=== PATIENT | female | born 1990 | race Asian ===

== ENCOUNTER 2018-02-02 03:52 | Inpatient (IN) | payer OTHER ==
[~2018-02-02] VITALS: Ht 160 cm; Wt 80.5 kg
[2018-02-02 04:11] LABS: ABSOLUTE BASOPHIL COUNT 0 /CUMM (0.0-0.2); ABSOLUTE EOSINOPHIL COUNT 0.1 /CUMM (0.0-0.7); ABSOLUTE GRANULOCYTE CT 11.6 /CUMM (1.4-6.5); ABSOLUTE LYMPH COUNT 1.1 /CUMM (1.2-3.4); ABSOLUTE MONOCYTE COUNT 0 /CUMM (0.10-0.60); BASOPHIL % 0 % (0.0-2.0); GRANULOCYTE % 90.5 % (42.2-75.2); HEMATOCRIT 29.5 % (37-47); MEAN CORPUSCULAR HGB 28.9 PG (27.0-31.0); MEAN CORPUSCULAR HGB CONC 33.4 G/DL (33.0-37.0); MEAN CORPUSCULAR VOLUME 86.5 FL (81.0-99.0); MEAN PLATELET VOLUME 7.7 FL (7.4-10.4); PLATELET COUNT 260 /CUMM (130-400); RBC DISTRIBUTION WIDTH 15.2 % (11.5-14.5); RED BLOOD CELL CT 3.41 /CUMM (4.20-5.40); WHITE BLOOD CELL COUNT 12.9 /CUMM (4.8-10.8)
--- NOTE | 2018-02-02 04:16 | ED GENERAL ADULT ---
See Addendum History of Present Illness General Chief Complaint: Dyspnea (COPD, CHF, Other) Stated Complaint: BIBA DIF BREATHING Source: patient, family, old records, EMS Exam Limitations: no limitations Vital Signs & Intake/Output Vital Signs & Intake/Output Vital Signs Date Time Temp Pulse Resp B/P B/P Pulse O2 O2 Flow FiO2 Mean Ox Delivery Rate 02/02 0734 91/53 02/02 0722 124 18 83/49 98 Room Air 02/02 0527 99.6 02/02 0527 99.6 120 20 96/56 99 Room Air 02/02 0420 103.5 02/02 0410 99 Room Air 02/02 0354 103.5 155 20 128/60 98 Allergies Coded Allergies: No Known Drug Allergies (NKDA 02/02/18) Triage Note: PT BIBA FROM HOME C/O SUDDEN ONSET SOB, AND CHILLS FOR A COUPLE OF HOURS. PMH OF VAGINAL DELIVERY AT [place] 11 DAYS AGO. HAD SPONTANEOUS EPISIOTOMY, SUTURES IN PLACE. IS BREAST FEEDING. HAS PRE HOSP 20G TO RT HAND AND LAC. TEMP 103.5 ON ARRIVAL TO ED. PT REPORTS BREATHING "IS BETTER" PT WAS HYPOTENSIVE FOR EMS SBP 80'S. RECEIVED 500 CC BOLUS NS. BP ON ARRIVAL TO ED 128/60. TEMP 103.5. O2 SAT 100% ON RA. PT VERY ANXIOUS. HUSBAMND AT BEDSIDE. NS CONTINUES TO INFUSE. DR CONTRERAS AT BEDSIDE TO EVAL PT ON PT ARRIVAL TO ROOM Triage Nurses Notes Reviewed? yes Onset: Evening Duration: hour(s):, better, constant, continues in ED, getting worse Timing: recent history Injury Environment: home Severity: severe No Modifying Factors: none Associated Symptoms: diaphoresis : No Patient currently breastfeeds: Yes HPI: 11 days prior to admission patient had normal spontaneous vaginal delivery. Several hours prior to admission she began to feel cold with chills. Prior to admission she had shaking chills shortness of breath She has a fever in the emergency department and complains of continued stitch pain. She denies nausea vomiting diarrhea abdominal pain chest pain headache dysuria rash bleeding. Past History Travel History Traveled to [place] past 21 day No Medical History Any Pertinent Medical History? none Neurological: NONE EENT: NONE Cardiovascular: NONE Respiratory: NONE Gastrointestinal: NONE Hepatic: NONE Renal: NONE Musculoskeletal: NONE Psychiatric: NONE Endocrine: NONE Surgical History Surgical History: non-contributory Psychosocial History What is your primary language Liberian Tobacco Use: Never used ETOH Use: denies use Illicit Drug Use: denies illicit drug use Family History Hx Contributory? No Review of Systems Review of Systems Constitutional: Reports: see HPI, chills, diaphoresis, fever, weakness. EENTM: Reports: no symptoms. Respiratory: Reports: see HPI, short of breath. Denies: cough. Cardiovascular: Reports: no symptoms. GI: Reports: no symptoms. Genitourinary: Reports: no symptoms. Musculoskeletal: Reports: no symptoms. Skin: Reports: see HPI. Neurological/Psychological: Reports: no symptoms. Hematologic/Endocrine: Reports: no symptoms. Immunologic/Allergic: Reports: no symptoms. All Other Systems: Reviewed and Negative Physical Exam Physical Exam General Appearance: well developed/nourished, alert, awake, anxious, mild distress Head: atraumatic, normal appearance Eyes: Bilateral: normal appearance, PERRL, EOMI. Ears, Nose, Throat: normal pharynx, normal ENT inspection, hearing grossly normal Neck: normal inspection, supple, full range of motion, no midline tenderness Respiratory: chest non-tender, no respiratory distress, quiet respiration, crackles Cardiovascular: regular rate/rhythm, normal peripheral pulses, tachycardia, norml femoral pulses equa Peripheral Pulses: 4+ carotid (R), 4+ carotid (L) Gastrointestinal: normal bowel sounds, soft, non-tender, no organomegaly Back: normal inspection, normal range of motion Extremities: normal inspection, normal capillary refill, normal range of motion, no edema Neurologic/Psych: no motor/sensory deficits, awake, alert, oriented x 3, normal mood/affect, bi solutions architect II-XII nml as tested Reflexes: 2+: bicep (R), bicep (L). Skin: intact, normal color, warm/dry Lymphatic: no anterior cervical radha Core Measures ACS in differential dx? No CVA/TIA Diagnosis: No Sepsis Present: Yes Sepsis Focused Exam Completed? Yes Progress Differential Diagnoses I considered the following diagnoses in my evaluation of the patient: Pneumonia UTI endometritis Plan of Care: Orders Procedure Date/time Status LACTIC ACID 02/02 0700 Complete BLOOD CULTURE 02/02 0421 Active HUMAN BETA HCG TITRE 02/02 0404 Complete CULTURE,URINE 02/02 040 Active BLOOD CULTURE 02/02 399 Active URINALYSIS 02/03 400 Complete LACTIC ACID 02/03 400 Complete COMPREHENSIVE METABOLIC PANEL 02/03 400 Complete CBC WITHOUT DIFFERENTIAL 02/03 400 Complete EKG 02/02 358 Active Laboratory Tests 02/02/18 0655: Lactic Acid 1.3 02/02/185: Urinalysis MOD H, Urine Color YEL, Urine Clarity CLDY H, Urine pH 6.0, Ur Specific [place] 1.015, Urine Protein TRACE H, Urine Ketones NEG, Urine Nitrite POS H, Urine Bilirubin NEG, Urine Urobilinogen 0.2, Ur Leukocyte Esterase LARGE H, Ur Microscopic SEDIMENT EXAMINED, Urine RBC 5-10 H, Urine WBC > 75 H, Ur Epithelial Cells FEW, Urine Bacteria MANY H, Urine Hemoglobin LARGE H, Urine Glucose NEG 02/02/18 0413: Beta HCG, Quant Cancelled 02/02/18 0404: Anion Gap 13, Estimated GFR > 60, BUN/Creatinine Ratio 24.0, Glucose 109 H, Lactic Acid 3.2 H, Calcium 8.9, Total Bilirubin 0.6, AST 18, ALT 16, Alkaline Phosphatase 89, Total Protein 6.3, Albumin 2.9 L, Globulin 3.4, Albumin/ Globulin Ratio 0.9 L, Beta HCG, Quant 7.7, CBC w Diff MAN DIFF ORDERED, RBC 3.41 L, MCV 86.5, MCH 28.9, MCHC 33.4, RDW 15.2 H, MPV 7.7, Gran % 90.5 H, Lymphocytes % 8.2 L, Monocytes % 0.3 L, Eosinophils % 1.0, Basophils % 0, Absolute Granulocytes 11.6 H, Segmented Neutrophils 79 H, Band Neutrophils 10 H, Absolute Lymphocytes 1.1 L, Lymphocytes 11 L, Absolute Monocytes 0 L, Absolute Eosinophils 0.1, Absolute Basophils 0, Platelet Estimate ADEQUATE, Polychromasia 1+, Anisocytosis 1+ Microbiology 02/02 454 BLOOD: Blood Culture - RECD 02/02 445 URINE ROUT: Urine Culture - RECD 02/02 441 BLOOD: Blood Culture - CAN Cancelled: CLERICAL ERROR 02/02 421 BLOOD: Blood Culture - RECD Initial ED EKG: normal axis, normal intervals, normal p-waves, normal QRS complex, rhythm (sinus tachycardia) Rhythm Strip: sinus tachycardia Departure Departure Time of Disposition: 733 Disposition: HOME OR SELF CARE Condition: Stable Clinical Impression Primary Impression: UTI (urinary tract infection) following delivery Secondary Impressions: Fever Qualifiers: Encounter type: initial encounter Lactic acidosis Departure Forms: Customer Survey General Discharge Information Prescriptions: Current Visit Scripts Cephalexin (Keflex) 1 CAP PO TID #30 CAP Ibuprofen 1 TAB PO Q6PRN PRN pain, fever #50 TAB with food Critical Care Note Critical Care Note Critical Care Time: 30-74 min (40) ED Sepsis Exam Date of Focused Sepsis Exam: 02/02/18 Time of Focused Sepsis Exam: 629 Sepsis Cardiac Exam: Regular Rate/Rhythm Sepsis Resp Exam: CTA Sepsis Cap Refill Exam: <2 Sec Sepsis Peripheral Pulse Exam: Normal Sepsis Peripheral Pulse Location: Radial Sepsis Skin Color Exam: Normal for Ethnicity Skin Temp/Moisture Exam: Warm/Dry Sepsis Skin Color Exam: Normal for Ethnicity Skin Temp/Moisture Exam: Warm/Dry
--- NOTE | 2018-02-02 05:18 | RADIOLOGY REPORT ---
EXAMINATION: XR PORTABLE CHEST CLINICAL INFORMATION: Fever. Chills. COMPARISON: None TECHNIQUE: Portable frontal view of the chest was obtained. 4:47 AM FINDINGS: Lung volume is low. No acute change. No infiltrate. No pleural effusion. The cardiac and mediastinal contours are normal. The heart size is normal. IMPRESSION: Low lung volume. No acute abnormality of the chest.
[2018-02-02] MEDS ORDERED: KEFLEX500 M1 PO (07:35)
[2018-02-02] MEDS ORDERED: IBUPROFEN600 M1 PO (07:35)
--- NOTE | 2018-02-02 09:16 | CT SCAN REPORT ---
EXAMINATION: CT ANGIOGRAM OF THE CHEST WITH AND WITHOUT CONTRAST (CT PULMONARY ANGIOGRAM FOR PE) CLINICAL INFORMATION: Shortness of breath. COMPARISON: Chest x-ray 02/02/2018. TECHNIQUE: Prior to contrast administration, noncontrast localization images were obtained. Subsequently, multidetector volumetric imaging was performed from the thoracic inlet to below the diaphragms following the administration of 80 mL Omnipaque 350 intravenous contrast. No contrast reaction reported. Sagittal, coronal, and MIP oblique sagittal reformatted images were obtained on the CT workstation, uploaded to PACS, and reviewed. Total exam dose-length product fluoroscopy and 5 mGy-cm. FINDINGS: QUALITY OF STUDY/CONTRAST BOLUS: Suboptimal. PULMONARY ARTERIES: The contrast in the peripheral vasculature is suboptimal. There is no filling defect or narrowing seen in the main, right and left pulmonary arteries. THORACIC AORTA: No aneurysm or dissection. LUNG: No focal consolidation, nodules or masses. PLEURA: No pleural effusion or pneumothorax. MEDIASTINUM: Normal heart size. No pericardial effusion. No hilar or mediastinal lymphadenopathy. No evidence of septal bowing or right heart strain. CHEST WALL/AXILLA: No axillary or internal mammary lymphadenopathy. OSSEOUS STRUCTURES: No acute or suspicious osseous abnormality. UPPER ABDOMEN: Unremarkable. No reflux of contrast into the hepatic veins to suggest elevated right heart pressures. IMPRESSION: There is a suboptimal contrast in the secondary branches of pulmonary artery. No filling defects seen in the main, right and left pulmonary arteries. If clinically indicated correlation with a D-dimer and a VQ scan can be performed if not repeat CTA chest The lungs are clear.
--- NOTE | 2018-02-02 11:47 | History & Physical ---
Grecia VENTURA,[facility] 02/02/18 1146: General Information and HPI MD Statement: I have seen and personally examined JOHNY PAREKH and documented this H&P. The patient is a 27 year old F who presented with a patient stated chief complaint of [chills and shortness of breath]. Source of Information: patient, family, police Exam Limitations: no limitations History of Present Illness: Ms. Parekh is 27 year old female with no significant past medical history +0 , day 11, normal spontaneous vaginal delivery uncomplicated and not prolonged who presented to ED with chief complaint of chills and shortness of breath. Patient was feeling well up until yesterday, around 3 AM woke up because of chills and started to have shortness of breath, BIBA. On presentation patient was found to be febrile 103.5, tachycardic 155 and blood pressure was running systolic 90-80, patient was given 3 boluses of normal saline and Tylenol for fever. She denied any abdominal pain, nausea, vomiting, suprapubic pain, CVA tenderness, dysuria, hematuria, chest pain, palpitation. Patient had delivery at [facility] and was discharged home. Denied any excessive vaginal bleeding, no clots. She nurse her baby, denied any breast tenderness or previous fevers. Allergies/Medications Allergies: Coded Allergies: No Known Drug Allergies (NKDA 02/02/18) Home Med list Cephalexin (Keflex) 500 MG CAPSULE 1 CAP PO TID uti Ibuprofen 600 MG TABLET 1 TAB PO Q6PRN PRN pain, fever with food Past History Travel History Traveled to [place] past 21 day No Medical History Neurological: NONE EENT: NONE Cardiovascular: NONE Respiratory: NONE Gastrointestinal: NONE Hepatic: NONE Renal: NONE Musculoskeletal: NONE Psychiatric: NONE Endocrine: NONE Surgical History Surgical History: non-contributory Past Family/Social History Psychosocial History ETOH Use: denies use Illicit Drug Use: denies illicit drug use Review of Systems Review of Systems Constitutional: Reports: chills. Denies: fever, malaise, weakness. EENTM: Denies: blurred vision, visual changes. Cardiovascular: Denies: chest pain, edema, orthopena, palpitations. Respiratory: Denies: cough, short of breath. GI: Denies: abdominal pain, constipation, diarrhea, nausea, vomiting. Genitourinary: Denies: dysuria, hematuria. Musculoskeletal: Denies: back pain, joint pain, joint swelling. Skin: Denies: cysts, rash. Neurological/Psychological: Denies: anxiety, depressed, headache, numbness, tremors. Hematologic/Endocrine: Denies: bruising, bleeding. Exam & Diagnostic Data Last 24 Hrs of Vital Signs/I&O Vital Signs Date Time Temp Pulse Resp B/P B/P Pulse O2 O2 Flow FiO2 Mean Ox Delivery Rate 02/02 1228 98.6 112 20 98/58 98 Room Air 02/02 1209 Room Air 02/02 1151 99.0 117 18 100/58 99 Room Air 02/02 1114 127 18 91/53 97 Room Air 02/02 1030 129 20 90/52 98 Room Air 02/02 0949 100.8 133 20 83/40 97 Room Air 02/02 0854 99.9 135 20 95/57 99 Room Air 02/02 0821 118 20 96/50 99 Room Air 02/02 0734 91/53 / 0722 124 18 83/49 98 Room Air 02/02 0527 99.6 02/02 0527 99.6 120 20 96/56 99 Room Air 02/02 0420 103.5 04/01 0410 99 Room Air 02/02 0354 103.5 155 20 128/60 98 Intake & Output 02/02 1600 02/02 0800 02/02 0000 Intake Total 1475 3100 Output Total 650 1150 Balance 825 1950 Intake, IV 1235 3100 Intake, Oral 240 0 Output, Urine 650 1150 Patient 74.899 kg 68 kg Weight Weight Bed scale Reported by Patient Measurement Method Physical Exam General Appearance Alert, Oriented X3, Cooperative, No Acute Distress Skin No Rashes, No Breakdown, No Significant Lesion Skin Temp/Moisture Exam: Warm/Dry HEENT Atraumatic, PERRLA, EOMI, Mucous Membr. moist/pink Neck Supple Lymphatic no cervical lymphadenopathy Cardiovascular Regular Rate, Normal S1, Normal S2, No Murmurs Lungs Clear to Auscultation, Normal Air Movement Abdomen Normal Bowel Sounds, Soft, No Tenderness Neurological Normal Gait, Normal Speech, Strength at 5/5 X4 Ext, Normal Tone, Sensation Intact, Cranial Nerves 3-12 NL, Reflexes 2+ Extremities No Clubbing, No Cyanosis, No Edema, Normal Pulses Last 24 Hrs of Labs/Pierre: Laboratory Tests 02/02/18 0655: Lactic Acid 1.3 02/02/18 0445: Urinalysis MOD H, Urine Color YEL, Urine Clarity CLDY H, Urine pH 6.0, Ur Specific [place] 1.015, Urine Protein TRACE H, Urine Ketones NEG, Urine Nitrite POS H, Urine Bilirubin NEG, Urine Urobilinogen 0.2, Ur Leukocyte Esterase LARGE H, Ur Microscopic SEDIMENT EXAMINED, Urine RBC 5-10 H, Urine WBC > 75 H, Ur Epithelial Cells FEW, Urine Bacteria MANY H, Urine Hemoglobin LARGE H, Urine Glucose NEG 02/02/18 0413: Beta HCG, Quant Cancelled 02/02/18 040: Anion Gap 13, Estimated GFR > 60, BUN/Creatinine Ratio 24.0, Glucose 109 H, Lactic Acid 3.2 H, Calcium 8.9, Total Bilirubin 0.6, AST 18, ALT 16, Alkaline Phosphatase 89, Total Protein 6.3, Albumin 2.9 L, Globulin 3.4, Albumin/ Globulin Ratio 0.9 L, Beta HCG, Quant 7.7, CBC w Diff MAN DIFF ORDERED, RBC 3.41 L, MCV 86.5, MCH 28.9, MCHC 33.4, RDW 15.2 H, MPV 7.7, Gran % 90.5 H, Lymphocytes % 8.2 L, Monocytes % 0.3 L, Eosinophils % 1.0, Basophils % 0, Absolute Granulocytes 11.6 H, Segmented Neutrophils 79 H, Band Neutrophils 10 H, Absolute Lymphocytes 1.1 L, Lymphocytes 11 L, Absolute Monocytes 0 L, Absolute Eosinophils 0.1, Absolute Basophils 0, Platelet Estimate ADEQUATE, Polychromasia 1+, Anisocytosis 1+ Microbiology 02/02 09 NASOPHARYN: Influenza Virus A & B Rapid Smear - COMP 02/02 454 BLOOD: Blood Culture - RECD 02/02 445 URINE ROUT: Urine Culture - RECD 02/02 441 BLOOD: Blood Culture - CAN Cancelled: CLERICAL ERROR 02/02 421 BLOOD: Blood Culture - RES GRAM NEGATIVE RODS Assessment/Plan Assessment: Patient is 27 year old female with no significant past medical history status post day 11 and complicated and prolonged spontaneous vaginal delivery +0 who presented with chief complaint of chills and isolated episode of shortness of breath. PE was ruled out by CTA however there where suboptimal filling of the secondary branches of pulmonary artery with suggestion for repeating VQ scan if patient clinically remained short of breath, patient is saturating well on room air with no chest pain, shortness of breath. UA is positive for nitrate and leukocytes. Patient was given 1 dose of ceftriaxone and blood, urine culture were sent. Patient also was given 3 boluses of normal saline for soft blood pressure systolic 80-90 improving. Continue to be sinus tachycardic that could be because fever, spesis/pain. Problem list #Sepsis of urological origin #Sinus tachycardia #Lactic acidosis resolved # day 11 with normal vaginal bleeding Plan -Admit to telemetry floor -Vitals every shift -Maintenance fluid normal saline 75 cc/h -Continue ceftriaxone IV -Follow-up urine and blood culture -Patient is saturating well on room air, keep monitored saturation, if persistent tachycardia we may get a repeat VQ scan and/or bilateral lower extremity Doppler scan -Repeat CBC, BEP -Contacted the on-call digital pre press operator and discussed the case with him, recommendations were followed Oral supplemental vitamins and folic acid -DVT prophylaxis Lovenox -Diet regular -Code full -Consultation MANUFACTURERS SERVICE REPRESENTATIVE As Ranked By This Provider Problem List: 1. UTI (urinary tract infection) following delivery 2. Fever Qualifiers Encounter type: initial encounter 3. Lactic acidosis Core Measures/Misc (07/21) Acute Coronary Syndrome ACS Diagnosis: No Congestive Heart Failure Congestive Heart Failure Diagnosis No Cerebrovascular Accident CVA/TIA Diagnosis: No VTE (View Protocol) VTE Risk Factors Acute Medical Illness No Mechanical VTE Prophylaxis d/t N/A MechProphylax Ordered No VTE Pharm Prophylaxis d/t NA PharmProphylax ordered Sepsis (View protocol) Sepsis Present: Yes Tommie VENTURA,Amir 02/02/18 1448: Attending MD Review Statement Attending Statement Attending MD Statement: examined this patient, discuss w/resident/PA/FUR JOINER, agreed w/resident/PA/FUR JOINER, reviewed EMR data (avail), discussed with nursing Attending Assessment/Plan: Pt was seen and evaluated. Chart reviewed. +UA likely UTI. CTA neg for filling defect. However, if remains SOB and desat consider VQ Scan. Agree with IV abx, f/u labs & cultures Agree with Cloth Bale Header consult to r/o post partem complications rest of the plan as per resident's note
[2018-02-02 12:28] VITALS: BP 98/58
[2018-02-02 14:18] VITALS: BP 94/56
--- NOTE | 2018-02-02 14:32 | Admission Certification ---
Admission Certification Certification Statement - As attending physician, I certify that at the time of - admission, based on clinical presentation, severity of - symptoms, need for further diagnostic testing and - therapeutic interventions, and risk of adverse outcomes - without in-hospital treatment, in my clinical assessment, - this patient requires an acute hospital stay for a minimum - of two nights or longer. I have also considered psychsocial - factors such as support system, advanced age, financial - issues, cognitive issues, and failed out-patient treatments, - past re-admission history, safety of patient, and lack of - compliance as applicable. Specific rationale supporting this admission is: fever, UTI
[2018-02-02 20:07] VITALS: BP 92/66
[2018-02-02 23:04] VITALS: BP 98/58
[2018-02-03 06:39] VITALS: BP 94/64
--- NOTE | 2018-02-03 07:17 | PN- Housestaff ---
Maria Luz Armando Jayme Abran 02/03/18 0717: Subjective Follow-up For: #Sepsis of urological origin #Sinus tachycardia #Lactic acidosis resolved # day 11 with normal vaginal bleeding Tele-Events Since Last Visit: NSR Subjective: No overnight event ,however patient was complaining of flank pain to night team. Resting comfortably in bed this morning. Afeberile overnight. Review of Systems Constitutional: Reports: see HPI. Objective Last 24 Hrs of Vital Signs/I&O Vital Signs Date Time Temp Pulse Resp B/P B/P Pulse O2 O2 Flow FiO2 Mean Ox Delivery Rate 02/03 0639 98.7 91 18 94/64 98 Room Air 02/02 2304 98.6 92 18 98/58 98 Room Air 02/02 2007 98.8 101 20 92/66 99 Room Air 02/02 1418 98.4 104 20 94/56 98 Room Air 02/02 1228 98.6 112 20 98/58 98 Room Air 02/02 1209 Room Air 02/02 1151 99.0 117 18 100/58 99 Room Air 02/02 1114 127 18 91/53 97 Room Air 02/02 1030 129 20 90/52 98 Room Air 02/02 0949 100.8 133 20 83/40 97 Room Air 02/02 0854 99.9 135 20 95/57 99 Room Air 02/02 0821 118 20 96/50 99 Room Air Intake & Output 02/03 1600 02/03 0800 02/03 0000 Intake Total 840 1080 Output Total Balance 840 1080 Intake, IV 600 600 Intake, Oral 240 480 Number 0 Bowel Movements Patient 81.25 kg Weight Physical Exam General Appearance: Sleeping in bed Cardiovascular: Regular Rate Current Medications: Current Medications Sig/Love Start time Last Medication Dose Route Stop Time Status Admin Acetaminophen 650 MG Q6P PRN 02/02 1200 AC 02/02 PO 2255 Ceftriaxone Sodium 1,000 MG DAILY 02/03 1000 AC IV Enoxaparin Sodium 40 MG DAILY 02/02 1201 AC 02/02 SC 1415 Ferrous Sulfate 325 MG TID 02/02 1600 AC 02/02 PO 2016 Ibuprofen 400 MG Q6P PRN 02/02 1200 AC 02/03 PO 0633 Influenza Virus 0.5 ML ONCE ONE 02/02 1230 DC 02/02 Vaccine IM 02/02 1231 1229 Ketorolac 15 MG Q6P PRN 02/02 1200 AC Tromethamine IV 02/05 1159 Ketorolac 30 MG ONCE ONE 02/02 0930 DC 02/02 Tromethamine IV 02/02 0931 0835 Ketorolac 0 .STK-MED ONE 02/02 0836 DC Tromethamine .ROUTE Morphine Sulfate 4 MG ONCE ONE 02/02 0915 CAN IV 02/02 0916 Multivitamins 1 TAB DAILY 02/02 1317 AC 02/02 PO 1415 Polyethylene Glycol 17 GM AT BEDTIME 02/02 2200 DC PO Polyethylene Glycol 17 GM AT BEDTIME NEED.. 02/02 1430 AC 02/02 PO 2016 Sodium Chloride 1,000 ML .[id number] 02/02 1200 AC 02/03 IV 0151 Last 24 Hrs of Lab/Pierre Results Last 24 Hrs of Labs/Mics: Laboratory Tests 02/03/18 0630: Sodium Pending, Potassium Pending, Chloride Pending, Carbon Dioxide Pending, Anion Gap Pending, BUN Pending, Creatinine Pending, BUN/Creatinine Ratio Pending , CBC w Diff Pending, WBC Pending, RBC Pending, Hgb Pending, Hct Pending, MCV Pending, MCH Pending, MCHC Pending, RDW Pending, Plt Count Pending, MPV Pending, Gran % Pending, Lymphocytes % Pending, Monocytes % Pending, Eosinophils % Pending, Basophils % Pending, Absolute Granulocytes Pending, Absolute Lymphocytes Pending, Absolute Monocytes Pending, Absolute Eosinophils Pending, Absolute Basophils Pending Microbiology 02/02 09 NASOPHARYN: Influenza Virus A & B Rapid Smear - COMP Assessment/Plan Assessment: Ms. Murry is 27 year old female with no significant past medical history status post day 11 and complicated and prolonged spontaneous vaginal delivery +0 who presented with chief complaint of chills and isolated episode of shortness of breath. PE was ruled out by CTA however there where suboptimal filling of the secondary branches of pulmonary artery with suggestion for repeating VQ scan if patient clinically remained short of breath, patient is saturating well on room air with no chest pain, shortness of breath. UA is positive for nitrate and leukocytes. Patient was given 1 dose of ceftriaxone and blood, urine culture were sent. Patient also was given 3 boluses of normal saline for soft blood pressure systolic 80-90 improving. Continue to be sinus tachycardic that could be because fever, spesis/pain. Problem list #Sepsis of urological origin #Sinus tachycardia #Lactic acidosis resolved # day 11 with normal vaginal bleeding Plan -Vitals every shift, afebrile overnight. -Maintenance fluid normal saline 75 cc/h -Continue ceftriaxone IV 1g qd -Follow-up urine and blood culture -BC grew GND, likely E.coli, Proteus, etc. -Patient is saturating well on room air, keep monitored saturation, if persistent tachycardia we may get a repeat VQ scan and/or bilateral lower extremity Doppler scan -Repeat CBC, BEP -Contacted the on-call body former and discussed the case with him, recommendations were followed Oral supplemental vitamins and folic acid -DVT prophylaxis Lovenox -Diet regular -Code full Problem List: 1. Lactic acidosis 2. Fever 3. UTI (urinary tract infection) following delivery Pain Ratin Pain Location: NA Pain Goal: Remain pain free Pain Plan: see AP Tomorrow's Labs & Rationales: CBC Gena Flores 02/03/18 1124: Attending MD Review Statement Attending Statement Attending MD Statement: examined this patient, discuss w/resident/PA/INDUSTRIAL HYGIENE MANAGER, agreed w/resident/PA/INDUSTRIAL HYGIENE MANAGER, discussed with family, reviewed EMR data (avail), discussed with nursing, discussed with case mgmt, reviewed images, amended to note Attending Assessment/Plan: Patient is post and found to have sepsis of urological origin with bacteremia gram negative rods. Patient is improving on iv antibiotics. Follow up final C/S and dental assistant instructor consult pending for routine post care. Plan will be to change to PO antibiotics and anticipate dc soon.
[2018-02-03 07:46] LABS: ABSOLUTE MONOCYTE COUNT 0.4 /CUMM (0.10-0.60); MEAN PLATELET VOLUME 8.6 FL (7.4-10.4); RBC DISTRIBUTION WIDTH 15.2 % (11.5-14.5)
[2018-02-03 08:00] LABS: ABSOLUTE BASOPHIL COUNT 0 /CUMM (0.0-0.2); ABSOLUTE EOSINOPHIL COUNT 0.3 /CUMM (0.0-0.7); ABSOLUTE GRANULOCYTE CT 8.2 /CUMM (1.4-6.5); BASOPHIL % 0.3 % (0.0-2.0); GRANULOCYTE % 75.2 % (42.2-75.2); HEMATOCRIT 26.6 % (37-47); MEAN CORPUSCULAR HGB 28.9 PG (27.0-31.0); MEAN CORPUSCULAR HGB CONC 33.1 G/DL (33.0-37.0); MEAN CORPUSCULAR VOLUME 87.4 FL (81.0-99.0); PLATELET COUNT 207 /CUMM (130-400); RED BLOOD CELL CT 3.04 /CUMM (4.20-5.40); WHITE BLOOD CELL COUNT 10.9 /CUMM (4.8-10.8)
[2018-02-03 09:35] VITALS: BP 92/60
--- NOTE | 2018-02-03 13:33 | PN- OBGYN ---
Surgical Brief Attending Note Brief Attending Note: I was contacted by Dr Vera 02/02/18 on this patient. She was in the ED yesterday and admitted for urosepsis. Consultation for Dr Flores. Patient is a 27 year old Parous female who is 12 days . She had an uncomplicated course at [place] and delivered vaginally with epidural. She presented to the ED with complaints of abdominal pain and dyspnea and fever. Hospital course thus far notable for Tmax 103 and gram negative rods in urine and blood. She had one episode of tachycardia and had CT angio to rule out PE. I informed Dr Vera and primary team to start on lovenox 02/02/18 as she is both and septic with higher risk of VTE. At present I saw patient at bedside and only with complaints of Right side back pain and groin pain on the right. She is without nausea and ambulating without assistance. No dyspnea noted on exam Breasts non engorged Abdomen with firm 20 cm fundus CVAT on the Right 1-2+ peripheral edema No homans No tenderness appreciated in either hip joint. Meds. Rocephin Labs notable for Hct of 26 and normal platelets. Urine culture and blood culture gram negative rods. A/P HD#2 for this female with right sided pyelonephritis and bacteremia and also in the state. 1) ID. Continue on IV antibiotics until 48 hours afebrile and without symptoms. Follow up cultures for sensitivity and course length of 10-14 days. Most likely to go home on Amoxil and or Augmentin. Quinolone class may be used as well. Recommend probiotics to reduce antibiotic associated diarrhea and celestina. Discussed reasons for pyelonephritis in as being common and more so on right given the "tilt of the uterus" towards the right and mild obstruction of the right collecting system. No clinical evidence of sacroileitus. 2) Breast feeding. She may pump and dump now 24 hours from IV contrast but then resume feedilng thereafter. There are no other agents contraindicated for breast feeding. 3) Nutritional counseling reviewed. Benefits of iron, vitamin c and vitamin d reviewed. 4) VTE risk reduction. Continue on lovenox to reduce VTE risk. She doesnt need same at home however was informed to ambulate and to avoid dehydration. 5) I will sign off on patient but please reconsult as needed. Face to face hospital time 20 minutes. Ample time for questions given. Patient and partner present for evaluation. Thank you!
[2018-02-03] MEDS ORDERED: PROBIOTIC1 EACH PO (14:09)
--- NOTE | 2018-02-03 14:10 | Patient Discharge Instructions ---
Discharge Instructions General Discharge Information Special Instructions: - Please follow up with your Chief Drafter within 1-2 weeks of discharge. - Please follow up with your primary care physician within 1-2 weeks of discharge. Inform your primary care physician of this admission to [facility]. - Continue your current medications per discharge instructions. - Please watch for these problems: Fever, Chills, Nausea, Vomiting, Shortness of Breath, Productive Cough, Chest Pain/Discomfort, Abdominal Pain, Active Bleeding or Bloody urine/stool. Diet Continue normal diet: Yes Activity Full Activity/No Limits: Yes Acute Coronary Syndrome Inclusion Criteria At DC or during hospital stay patient has or had the following: ACS DIAGNOSIS No Discharge Core Measures Meds if any: Prescribed or Continued at Discharge Meds if any: NOT Prescribed or Continued at Discharge Congestive Heart Failure Inclusion Criteria At DC or during hospital stay patient has or had the following: CHF DIAGNOSIS No Discharge Core Measures Meds if any: Prescribed or Continued at Discharge Meds if any: NOT Prescribed or Continued at Discharge Cerebrovascular accident Inclusion Criteria At DC or during hospital stay patient has or had the following: CVA/TIA Diagnosis No Discharge Core Measures Meds if any: Prescribed or Continued at Discharge Meds if any: NOT Prescribed or Continued at Discharge Venous thromboembolism Inclusion Criteria VTE Diagnosis No VTE Type NONE VTE Confirmed by (Test) NONE Discharge Core Measures - Per Current guidelines, there needs to be overlap - treatment for the first 5 days of Warfarin therapy. - If discharged on Warfarin prior to 5 days of - overlap therapy, the patient will need to be - assessed for post discharge needs including - *Post discharge parental anticoagulation - *Warfarin and/or parental anticoagulation education - *Follow up date to check INR post discharge At least 5 days overlap therapy as Inpatient No Meds if any: Prescribed or Continued at Discharge Note: Overlap Therapy is Warfarin and Anticoagulant Meds if any: NOT Prescribed or Continued at Discharge
--- NOTE | 2018-02-03 14:14 | Discharge Summary ---
Visit Information Visit Dates Admission Date: 02/02/18 Discharge Date: 02/04/2018 Hospital Course Course Attending Physician: Mark VENTURA,Gena Primary Care Physician: Patient Has No Primary Care Dr Hospital Course: Ms. Murry is 27 year old female with no significant past medical history status post day 11 and complicated and prolonged spontaneous vaginal delivery +0 who presented with chief complaint of chills and isolated episode of shortness of breath. Patient was feeling well up until 4/, and around 3 AM woke up because of chills and started to have shortness of breath, BIBA. On presentation patient was found to be febrile 103.5, tachycardic 155 and blood pressure was running systolic 90-80, patient was given 3 boluses of normal saline and Tylenol for fever. She denied any abdominal pain, nausea, vomiting, suprapubic pain, CVA tenderness, dysuria, hematuria, chest pain, palpitation. Patient had delivery at [facility] and was discharged home. Denied any excessive vaginal bleeding, no clots. She nurse her baby, denied any breast tenderness or previous fevers. PE was ruled out by CTA however there where suboptimal filling of the secondary branches of pulmonary artery with suggestion for repeating VQ scan if patient clinically remained short of breath, patient is saturating well on room air with no chest pain, shortness of breath. UA is positive for nitrate and leukocytes. Patient was given 1 dose of ceftriaxone and blood, urine culture were sent. Patient also was given 3 boluses of normal saline for soft blood pressure systolic 80-90 improving. Continue to be sinus tachycardic that could be because fever, spesis/pain. Patient was admitted to telemetry for the following management Problem list #Sepsis of urological origin #Sinus tachycardia #Lactic acidosis resolved # day 11 with normal vaginal bleeding Hospital Course On admission, patient was started on IV ceftriaxone 1 g daily, and sent for blood culture/urine culture. Patient's vital was monitored every shift, and has been afebrile since admission. Patient's leukocytosis resolved on hospital day 3. Patient's blood culture and urine culture eventually grew pansensitive E. coli, and was sent home with 10 day course of Augmentin 875 mg twice daily for treatment of sepsis of urological origin. Patient had episodes of sinus tachycardia, and chest CT and rule out any pulmonary embolism, and patient had no more episodes of sinus tachycardia over the hospital stay. HEAD FIELD HOCKEY COACH was consulted and Dr. Conner has discussed with the patient regarding that pyelonephritis in has been, and more on the right. Patient had no clinical evidence of sacroiliitus, and outpatient antibiotic treatment is not contraindicated for breast-feeding. Patient was referred to outpatient follow-up with Dr. Skinner as her new primary care, and follow with Dr. Conner for care. Patient was also advised to continue oral supplemental vitamin and folic acid. DVT prophylaxis alps Diet regular Full Code Allergies: Coded Allergies: No Known Drug Allergies (NKDA 02/02/18) Pertinent Lab Results: SERVICE DATE: 02/02/18 EXAM TYPE: RAD - XRY-PORTABLE CHEST XRAY IMPRESSION: Low lung volume. No acute abnormality of the chest. SERVICE DATE: 02/02/18 EXAM TYPE: CAT - CTA CHEST-PULMONARY EMBOLISM IMPRESSION: There is a suboptimal contrast in the secondary branches of pulmonary artery. No filling defects seen in the main, right and left pulmonary arteries. If clinically indicated correlation with a D-dimer and a VQ scan can be performed if not repeat CTA chest The lungs are clear. Laboratory Tests 02/04 0710 Hematology CBC w Diff NO MAN DIFF REQ WBC (4.8 - 10.8 /CUMM) 6.4 RBC (4.20 - 5.40 /CUMM) 2.94 L Hgb (12.0 - 16.0 G/DL) 8.5 L Hct (37 - 47 %) 25.5 L MCV (81.0 - 99.0 FL) 86.8 MCH (27.0 - 31.0 PG) 29.0 MCHC (33.0 - 37.0 G/DL) 33.3 RDW (11.5 - 14.5 %) 14.7 H Plt Count (130 - 400 /CUMM) 207 MPV (7.4 - 10.4 FL) 8.1 Gran % (42.2 - 75.2 %) 70.3 Lymphocytes % (20.5 - 51.1 %) 20.7 Monocytes % (1.7 - 9.3 %) 5.6 Eosinophils % (0 - 5 %) 2.9 Basophils % (0.0 - 2.0 %) 0.5 Absolute Granulocytes (1.4 - 6.5 /CUMM) 4.5 Absolute Lymphocytes (1.2 - 3.4 /CUMM) 1.3 Absolute Monocytes (0.10 - 0.60 /CUMM) 0.4 Absolute Eosinophils (0.0 - 0.7 /CUMM) 0.2 Absolute Basophils (0.0 - 0.2 /CUMM) 0 Disposition Summary Disposition Principal Diagnosis: #Sepsis of urological origin #Sinus tachycardia #Lactic acidosis resolved # w/ normal vaginal bleeding Additional Diagnosis: as above Discharge Disposition: home or self care Discharge Instructions General Discharge Information Code Status: Full Code Patient's Diet: Heart Healthy Patient's Activity: As tolerated Follow-Up Instructions/Appts: - Please follow up with your Event Staff within 1-2 weeks of discharge. - Please follow up with your primary care physician within 1-2 weeks of discharge. Inform your primary care physician of this admission to [facility]. - Continue your current medications per discharge instructions. - Please watch for these problems: Fever, Chills, Nausea, Vomiting, Shortness of Breath, Productive Cough, Chest Pain/Discomfort, Abdominal Pain, Active Bleeding or Bloody urine/stool. Medications at Discharge Discharge Medications: Stop taking the following medications: Cephalexin (Keflex) 500 MG CAPSULE ORAL THREE TIMES DAILY Qty = 30 Continue taking these medications: Ibuprofen (Ibuprofen) 600 MG TABLET 1 Tablet ORAL EVERY 6 HOURS NEEDED as needed for pain, fever Qty = 50 Instructions: with food Start taking the following new medications: Lactobacillus Acidophilus (Probiotic) 10 BILLION CELL CAPSULE 1 Capsule ORAL THREE TIMES DAILY Qty = 30 No Refills Instructions: . Amoxicillin/Potassium Clav (Augmentin 875-125 Tablet) 875 MG-125 MG TABLET 1 Tablet ORAL TWICE DAILY Qty = 20 No Refills Instructions: . Copies To: Timur VENTURA,Fahad Conner MD,Corbin Ibrahim MD Review Statement Documenting Attending: Gena Flores MD Other Findings: Patient is post and found to have sepsis of urological origin with bacteremia gram negative rods. Patient is improving on iv antibiotics. Follow up final C/S suggestive of E coli pansensitive and cash applications associate consult noted for routine post care. consult was done and education provided. Plan will be to change to PO antibiotics and anticipate dc soon. Patient need to f/u o/p MRI SUPERVISOR as scheduled visit.
[2018-02-03 14:27] VITALS: BP 120/70
[2018-02-03 14:50] VITALS: BP 112/72
[2018-02-03 22:34] VITALS: BP 102/64
[2018-02-04 06:49] VITALS: BP 118/72
--- NOTE | 2018-02-04 07:23 | PN- Housestaff ---
Maria Luz Armando Jayme Osullivan 02/04/18 0723: Subjective Follow-up For: #Sepsis of urological origin #Sinus tachycardia #Lactic acidosis resolved # with normal vaginal bleeding Tele-Events Since Last Visit: Off Subjective: No overnight event. Patient had been afebrile for the night. No tachycardia. Review of Systems Constitutional: Reports: see HPI. Objective Last 24 Hrs of Vital Signs/I&O Vital Signs Date Time Temp Pulse Resp B/P B/P Pulse O2 O2 Flow FiO2 Mean Ox Delivery Rate 02/04 0649 98.0 68 20 118/72 98 Room Air 02/03 2234 98.1 87 20 102/64 99 Room Air 02/03 1450 90 112/72 02/03 1427 98.0 80 15 120/70 100 / 0935 80 92/60 Intake & Output 02/04 1600 02/04 0800 02/04 0000 Intake Total 240 480 Output Total Balance 240 480 Intake, Oral 240 480 Number 0 0 Bowel Movements Patient 80.513 kg Weight Weight Bed scale Measurement Method Physical Exam General Appearance: Sleeping this AM Cardiovascular: Regular Rate Current Medications: Current Medications Sig/Love Start time Last Medication Dose Route Stop Time Status Admin Acetaminophen 650 MG Q6P PRN 02/02 1200 AC 02/02 PO 2255 Ceftriaxone Sodium 1,000 MG DAILY 02/03 1000 AC 02/03 IV 0915 Enoxaparin Sodium 40 MG DAILY 02/02 1201 DC 02/03 SC 1450 Ferrous Sulfate 325 MG TID 02/02 1600 AC 02/03 PO 2035 Ibuprofen 400 MG .STK-MED ONE 02/03 1455 DC PO 02/03 1456 Ibuprofen 400 MG Q6P PRN 02/02 1200 AC 02/04 PO 0419 Ketorolac 15 MG Q6P PRN 02/02 1200 AC Tromethamine IV 02/05 1159 Multivitamins 1 TAB DAILY 02/02 1317 AC 02/03 PO 0915 Polyethylene Glycol 17 GM AT BEDTIME NEED.. 02/02 1430 AC 02/03 PO 2035 Sodium Chloride 1,000 ML .[id number] 02/02 1200 DC 02/03 IV 0151 Last 24 Hrs of Lab/Pierre Results Last 24 Hrs of Labs/Mics: Laboratory Tests 02/04/18 0710: CBC w Diff Pending, WBC Pending, RBC Pending, Hgb Pending, Hct Pending, MCV Pending, MCH Pending, MCHC Pending, RDW Pending, Plt Count Pending, MPV Pending Assessment/Plan Assessment: Ms. Murry is 27 year old female with no significant past medical history status post day 11 and complicated and prolonged spontaneous vaginal delivery +0 who presented with chief complaint of chills and isolated episode of shortness of breath. PE was ruled out by CTA however there where suboptimal filling of the secondary branches of pulmonary artery with suggestion for repeating VQ scan if patient clinically remained short of breath, patient is saturating well on room air with no chest pain, shortness of breath. UA is positive for nitrate and leukocytes. Patient was given 1 dose of ceftriaxone and blood, urine culture were sent. Patient also was given 3 boluses of normal saline for soft blood pressure systolic 80-90 improving. Continue to be sinus tachycardic that could be because fever, spesis/pain. Problem list #Sepsis of urological origin #Sinus tachycardia #Lactic acidosis resolved # with normal vaginal bleeding Plan -Vitals every shift, afebrile overnight. -Continue ceftriaxone IV 1g qd -Follow-up urine and blood culture -BC grew GND, likely E.coli, Proteus, etc. -Patient is saturating well on room air, keep monitored saturation, if persistent tachycardia we may get a repeat VQ scan and/or bilateral lower extremity Doppler scan -Currently off tele without tele event recorded. -Appreciated PATTERN MECHANIC recommendations. -Oral supplemental vitamins and folic acid -DVT prophylaxis ALPS -Diet regular -Code full Problem List: 1. UTI (urinary tract infection) following delivery Pain Ratin Pain Location: NA Pain Goal: Remain pain free Pain Plan: see AP Tomorrow's Labs & Rationales: Gena Jimenez 02/04/18 1051: Attending MD Review Statement Attending Statement Attending MD Statement: examined this patient, discuss w/resident/PA/PETROLEUM INSPECTOR, agreed w/resident/PA/PETROLEUM INSPECTOR, discussed with family, reviewed EMR data (avail), discussed with nursing, discussed with case mgmt, reviewed images, amended to note Attending Assessment/Plan: Patient is post and found to have sepsis of urological origin with bacteremia gram negative rods. Patient is improving on iv antibiotics. Follow up final C/S suggestive of E coli pansensitive and director part consult noted for routine post care. consult was done and education provided. Plan will be to change to PO antibiotics and anticipate dc soon. Patient need to f/u o/p STRUCTURAL IRON ERECTOR as scheduled visit.
[2018-02-04 08:22] LABS: ABSOLUTE BASOPHIL COUNT 0 /CUMM (0.0-0.2); ABSOLUTE EOSINOPHIL COUNT 0.2 /CUMM (0.0-0.7); ABSOLUTE GRANULOCYTE CT 4.5 /CUMM (1.4-6.5); ABSOLUTE LYMPH COUNT 1.3 /CUMM (1.2-3.4); ABSOLUTE MONOCYTE COUNT 0.4 /CUMM (0.10-0.60); BASOPHIL % 0.5 % (0.0-2.0); EOSINOPHIL % 2.9 % (0-5); GRANULOCYTE % 70.3 % (42.2-75.2); HEMATOCRIT 25.5 % (37-47); MEAN CORPUSCULAR HGB CONC 33.3 G/DL (33.0-37.0); MEAN CORPUSCULAR VOLUME 86.8 FL (81.0-99.0); MEAN PLATELET VOLUME 8.1 FL (7.4-10.4); PLATELET COUNT 207 /CUMM (130-400); RBC DISTRIBUTION WIDTH 14.7 % (11.5-14.5); RED BLOOD CELL CT 2.94 /CUMM (4.20-5.40); WHITE BLOOD CELL COUNT 6.4 /CUMM (4.8-10.8)
[2018-02-04] MEDS ORDERED: AUGMENTIN 875-1 EACH PO ×2 (08:35→09:45)
[2018-02-04] MEDS ORDERED: PROBIOTIC1 EACH PO (09:45)
== END 2018-02-04 11:00 | DRG 776 ==
LOC: ERH 03:52 → ERHI 10:08 → 1NO 10:08 → ENRESERV 10:56 → ENTRNSPT 11:49 → EDTRNSPTSTS 11:51 → EDTRNSPT 11:51 → 1NO 12:13 → DELTRNSPT 12:29 → 1NO 17:31 → ENPENDDIS 02-04 08:41 → 1NO 02-04 11:00
PROVIDERS: Emergency Medicine; Student in an Organized Health Care Education/Training Program
DX: O85 Puerperal sepsis (principal); E87.2 Acidosis; O86.29 Other urinary tract infection following delivery; B96.20 Unspecified Escherichia coli [E. coli] as the cause of diseases classified elsewhere
CPT/HCPCS: 1NP; 36592; 71045; 81001; 82436; 87040; 87086; 87804; 87804-59; 93005; 93010; 96361; 96365; 96375; 99291; J0131; J0696; J1650; J1885; Q2036